=== PATIENT | male | born 1985 | race Caucasian/White ===

== ENCOUNTER 2017-03-20 12:18 | Emergency (ER) | payer SELFPAY ==
[~2017-03-20] VITALS: Ht 177.8 cm; Wt 85.7 kg
[2017-03-20] MEDS ORDERED: IBUPROFEN 200 MG TABLET PO ONE (13:00)
[2017-03-20 13:56] LABS: BLOOD UREA NITROGEN 16 mg/dL (7-18)
[2017-03-20] MEDS ORDERED: IBUPROFEN 200 MG TABLET ONE (14:15)
[2017-03-20 14:23] VITALS: BP 125/80
== END 2017-03-20 14:56 | disposition home or self-care (01) ==
LOC: ED 14:50
DX: N39.0 Urinary tract infection, site not specified (principal); F19.10 Other psychoactive substance abuse, uncomplicated; Z87.442 Personal history of urinary calculi; Z87.440 Personal history of urinary (tract) infections
CPT/HCPCS: 36415; 74020; 80048; 81001; 82040; 85025; 87077; 87086; 87186